=== PATIENT | female | born 1990 | race Caucasian/White ===

== ENCOUNTER 2021-01-18 20:34 | Emergency (ER) | payer SELFPAY ==
[~2021-01-18] VITALS: Ht 180.3 cm; Wt 59.0 kg
[2021-01-18 20:37] VITALS: BP 112/53
== END 2021-01-18 21:38 | disposition left against medical advice (07) ==
LOC: ER 20:36
DX: L02.212 Cutaneous abscess of back [any part, except buttock and flank] (principal); Z53.21 Procedure and treatment not carried out due to patient leaving prior to being seen by health care provider